=== PATIENT | female | born 1975 | race Caucasian/White ===

== ENCOUNTER → 2016-11-28 | Outpatient (CLI) | payer OTHER ==
[~2016-11-28] VITALS: Ht 162.6 cm; Wt 80.9 kg
[~2016-11-28] MED LIST: DELTASONE20 M1 PO; FIORICET,ESG1 TABLET PO; NAPROXEN500 MG PO; PEPCID20 MG PO
== END | disposition home or self-care (01) ==
LOC: AMB 08:33
DX: K29.70 Gastritis, unspecified, without bleeding (principal); K20.9 Esophagitis, unspecified; B96.81 Helicobacter pylori [H. pylori] as the cause of diseases classified elsewhere; D36.10 Benign neoplasm of peripheral nerves and autonomic nervous system, unspecified; K63.5 Polyp of colon; K59.09 Other constipation; R11.10 Vomiting, unspecified; K21.9 Gastro-esophageal reflux disease without esophagitis; E78.6 Lipoprotein deficiency; F17.200 Nicotine dependence, unspecified, uncomplicated; E66.3 Overweight; Z68.29 Body mass index [BMI] 29.0-29.9, adult
CPT/HCPCS: 88305; 88342 TC; J2250; J3010

== ENCOUNTER 2017-08-28 09:12 | Day surgery (SDC) | payer OTHER ==
[~2017-08-28] VITALS: Ht 162.6 cm; Wt 77.6 kg
[2017-08-28 09:54] VITALS: BP 122/70
[2017-08-28] MEDS ORDERED: IBUPROFEN800 MG PO (13:37)
[2017-08-28] MEDS ORDERED: ENDOCET 5-3251 EACH PO (13:37)
[2017-08-28 14:15] VITALS: BP 136/75
[2017-08-28 15:40] VITALS: BP 156/82
[2017-08-28 17:20] VITALS: BP 136/69
[2017-08-28 18:00] VITALS: BP 161/84
== END 2017-08-28 18:10 | disposition home or self-care (01) ==
LOC: SDC 09:12
DX: N92.1 Excessive and frequent menstruation with irregular cycle (principal); N84.0 Polyp of corpus uteri; D25.9 Leiomyoma of uterus, unspecified; G89.29 Other chronic pain; R10.2 Pelvic and perineal pain; N13.5 Crossing vessel and stricture of ureter without hydronephrosis; Z98.51 Tubal ligation status; F17.210 Nicotine dependence, cigarettes, uncomplicated; Z88.8 Allergy status to other drugs, medicaments and biological substances; Z80.3 Family history of malignant neoplasm of breast; Z83.49 Family history of other endocrine, nutritional and metabolic diseases; Z82.49 Family history of ischemic heart disease and other diseases of the circulatory system; Z82.5 Family history of asthma and other chronic lower respiratory diseases; Z81.8 Family history of other mental and behavioral disorders
CPT/HCPCS: 88307; J0131; J0690; J1170; J2250; J2405; J2710; J2765; J3010; S0020